=== PATIENT | female | born 1980 | race Caucasian/White ===

== ENCOUNTER 2016-07-05 10:08 | Emergency (ER) | payer OTHER ==
--- NOTE | 2016-07-05 12:15 | DIAGNOSTIC IMAGING REPORT ---
PROCEDURE: CT LUMBAR SPINE W/O CONTRAST INDICATION: LOWER BACK PAIN. HX OF "FRACTURE" TECHNIQUE: Thin slice axial CT images were obtained through the lumbar spine. Coronal and sagittal reformations were created. COMPARISON: None. FINDINGS: Five lumbar type vertebral bodies are present. There is a unilateral left-sided pars defect of L5 which is well corticated and demonstrates tiny subcortical cystic changes. No significant degenerative hypertrophy. The vertebral bodies are otherwise intact. No acute or chronic fractures. The patient is slightly tilted to the right, but the AP and transverse vertebral body alignment remains normal. Normal disc spacing. Paraspinal soft tissues are within normal limits. No suspicious density within the spinal canal. IMPRESSION: 1. No acute fractures. 2. Chronic-appearing unilateral left L5 pars defect. 3. Findings called to the emergency room.
--- NOTE | 2016-07-05 12:24 | ED CLINICAL REPORT ---
Clinical Report - Physicians/Mid Levels [facility] [address] [place] [address] 07/05/2016 10:09 Patient: LUCIE ROJAS Time Seen: 1010. Arrived- By private vehicle. Historian- patient. HISTORY OF PRESENT ILLNESS Chief Complaint: BACK PAIN. Onset was yesterday and it is still present. It was abrupt in onset and has been constant but is not gone now. It is described as being severe and in the area of the left lower lumbar spine and right lower lumbar spine. The quality is noted to be sharp and aching. No radiation. No bladder dysfunction, bowel dysfunction, sensory loss or motor loss. Additional history - Reports no history of IV drug use, fever, or saddle anesthesia. Patient denies an injury but injury to the head or neck. No other injury. Similar symptoms previously: Many times. Recent medical care: Not recently seen/assessed. REVIEW OF SYSTEMS No fever or skin rash. All systems otherwise negative, except as recorded above. PAST HISTORY See nurses notes. Medications: Nauzene Oral 1 tab at 0800. None. 400mg advil at 0800. Allergies: No Known Drug Allergy. SOCIAL HISTORY Smoker- current status unknown. Occasional alcohol use. History of occasional drug use: marijuana. No recent travel. Is a local resident. ADDITIONAL NOTES The nursing notes have been reviewed. PHYSICAL EXAM Vital Signs: 07/05/2016 10:15 BP: 129/93. HR: 71. RR: 18. O2 saturation: 100%. Temp: 98.4 F. Pain level now: 8/10. Oxygen saturation normal. Appearance: Alert. No acute distress. HEENT: Normal external inspection. Eyes: Pupils equal, round and reactive to light. ENT: Ears normal. Pharynx normal. Neck: Normal inspection. Neck nontender. Painless ROM. CVS: Heart sounds normal. Respiratory: No respiratory distress. Breath sounds normal. Abdomen: No visible injury. Soft and nontender. Bowel sounds normal. Back: Normal inspection. No vertebral point tenderness. (mild bilateral paraspinal muscle tenderness. No overlying skin changes. No crepitus. No step-off. No masses.). Skin: Skin warm and dry. Normal skin color. No rash. Normal skin turgor. Extremities: Extremities exhibit normal ROM. Extremities nontender. Neuro: Oriented X 3. Mood/affect normal. No motor deficit. No sensory deficit. LABS, X-RAYS, AND EKG Laboratory Tests: UA-Culture if indicated: (EMERY: 07/05/2016 10:43) ( [facility] 07/05/2016 10:58) Final results Test Result Flag Units (Reference) URINE COLOR YELLOW URINE APPEARANCE CLEAR URINE GLUCOSE NEGATIVE (NEGATIVE) URINE BILIRUBIN NEGATIVE (NEGATIVE) URINE KETONE NEGATIVE (NEGATIVE) URINE SPECIFIC GRAVITY <= 1.005 L (1.010-1.030) URINE PH 7.0 (5.0-8.0) URINE PROTEIN NEGATIVE (NEGATIVE) URINE UROBILINOGEN 0.2 EU/dL (0.2-1.0) URINE NITRITE NEGATIVE (NEGATIVE) URINE BLOOD 3+ (NEGATIVE) URINE LEUK ESTERASE NEGATIVE (NEGATIVE) URINE RBC 3-5 rbc/hpf (0-1) URINE WBC NONE SEEN wbc/hpf (0-1) URINE EPITHELIAL CELLS 0-1 EPI/hpf (0-5) URINE BACTERIA TRACE (<1+) (NONE SEEN) URINE COMMENT CULT NOT INDICATED URINE CULTURES ARE SET-UP BASED ON THE FOLLOWING CRITERIA:POSITIVE NITRITEPOSITIVE LEUKOCYTE ESTERASEGREATER THAN 10 WHITE BLOOD CELLSMODERATE (2+) OR GREATER BACTERIA Urine: (EMERY: 07/05/2016 10:43) ( [facility] 07/05/2016 10:49) Final results Test Result Flag Units (Reference) URINE NEGATIVE . PROGRESS AND PROCEDURES Course of Care: The patient is a pleasant 35yo female presenting for evaluation of lower back apin . On examination, the patient does not have any signs of meningitis or cauda equina/conus medullaris. No evidence of paraspinal infection or epidural abscess. No red flags. Patient does not require imaging at this time however due to reported hx of fracture. Discussed CT vs plain films. No evidence of cord compromise at this time. Patient appears nontoxic and is in no acute distress. At this point, feel the risks of imaging does outweigh the benefits. Pain medication offered here in the emergency department. Patient is agreeable to the treatment plan. UA ordered for possible pyelonephritis. Pain medication provided here in the emergency department. Patient continues to be in no acute distress and resting comfortably. Work up only remarkable for blood on UA. Patient reports being on her period. Do not feel further workup in the emergency department or admission to the hospital require at this point in time. I discussed with the patient workup, diagnosis, home care, follow-up, and return precautions. All questions have been answered. The patient expressed understanding of these instructions and was agreeable to them. Disposition: Discharged. Condition: good. CLINICAL IMPRESSION 07/05/2016 10:15 BP: 129/93. HR: 71. RR: 18. O2 saturation: 100%. Temp: 98.4 F. Pain level now: 12/10. Microscopic hematuria Hypertensive. Oxygen saturation normal. Essential hypertension. Acute nontraumatic lumbar back pain. (acute left > right). INSTRUCTIONS Warnings: GENERAL WARNINGS: Return or contact your physician immediately if your condition worsens or changes unexpectedly, if not improving as expected, or if other problems arise. SPECIFICALLY, return if you develop weakness, numbness, tingling, pain or incontinence. fever. Your Current Medications: CONTINUE TAKING THE FOLLOWING MEDICATIONS: 400mg advil at 0800*. Nauzene Oral : 1 tab at 0800. None*. Prescription Medications: Motrin 600 mg tablets: take 1 tablet orally every 6 hours as needed for pain, stiffness or swelling. Dispense thirty (30). No refill. Substitution is permissible. (Take with food) Percocet 5 mg/325 mg: take 1 tablet orally every 6 hours as needed for pain. Dispense ten (10). No refill. Substitution is permissible. Follow-up: Return to the emergency department as needed. Follow up with your doctor in three days. Reason for referral: recheck today's concerns. Summary of care provided to patient via paper. Screening today revealed the patient's blood pressure to be in the normal range. The patient should follow up with a primary care provider for blood pressure management. Understanding of the discharge instructions verbalized by patient. (Electronically signed by Vikram Mckinney Dr. 07/07/2016 1:40)
--- NOTE | 2016-07-05 12:24 | ED ORDER SUMMARY ---
..... Patient: LUCIE ROJAS OrderSheet [facility] VisitID: [id number] [address] [place] [address] 35y, F Registration Date/Time: 07/05/2016 ORDER SHEET Weight: 108.8 kg (stated) Allergies: No Known Drug Allergy GENERAL ORDERS: CT Lumbar Spine wo Cont Urgent (10:41 07/05/2016 Elvis Quinn) (Ack 10:43 oerner) (10:48 oerner) UA-Culture if indicated Urgent (10:42 07/05/2016 Elvis Quinn) (Ack 10:43 Megan) (11:02 DDean R.N.) Urine Urgent (10:42 07/05/2016 Elvis Quinn) (Ack 10:43 Yoelrjamin) (10:46 DDean R.N.) (Cancelled: Other10:46 DDean R.N.) POC - Urine hCG (10:46 07/05/2016 DDean R.N. per protocol) (10:47 DDean R.N.) MEDICATION ORDERS: Toradol IM 60 mg (NOW) (10:42 07/05/2016 Elvis Quinn) (Ack 10:46 DDean R.N.) (11:01 DDean R.N.) Zofran ODT PO 4 mg (NOW) (10:42 07/05/2016 Elvis Quinn) (Ack 10:46 DDean R.N.) (11:02 DDean R.N.) IV FLUIDS: ORDER SHEET NOTES: [Electronically signed by Andria Box R.N. (14:51 07/05/2016)] [Electronically signed by Vikram Mckinney Dr. (01:40 07/07/2016)] [Electronically locked/signed by Andria Box R.N. (14:51 07/05/2016)]
--- NOTE | 2016-07-05 12:24 | ED ORDER SUMMARY ---
..... Patient: LUCIE ROJAS OrderSheet [facility] VisitID: [id number] [address] [place] [address] 35y, F Registration Date/Time: 07/05/2016 ORDER SHEET Weight: 108.8 kg (stated) Allergies: No Known Drug Allergy GENERAL ORDERS: CT Lumbar Spine wo Cont Urgent (10:41 07/05/2016 Elvis Quinn) (Ack 10:43 oerner) (10:48 oerner) UA-Culture if indicated Urgent (10:42 07/05/2016 Elvis Quinn) (Ack 10:43 Megan) (11:02 DDean R.N.) Urine Urgent (10:42 07/05/2016 Elvis Quinn) (Ack 10:43 Yoelrjamin) (10:46 DDean R.N.) (Cancelled: Other10:46 DDean R.N.) POC - Urine hCG (10:46 07/05/2016 DDean R.N. per protocol) (10:47 DDean R.N.) MEDICATION ORDERS: Toradol IM 60 mg (NOW) (10:42 07/05/2016 Elvis Quinn) (Ack 10:46 DDean R.N.) (11:01 DDean R.N.) Zofran ODT PO 4 mg (NOW) (10:42 07/05/2016 Elvis Quinn) (Ack 10:46 DDean R.N.) (11:02 DDean R.N.) IV FLUIDS: ORDER SHEET NOTES: [Electronically signed by Andria Box R.N. (14:51 07/05/2016)] [Electronically signed by Vikram Mckinney Dr. (01:40 07/07/2016)] [Electronically locked/signed by Andria Box R.N. (14:51 07/05/2016)]
--- NOTE | 2016-07-05 12:24 | ED NURSING NOTES ---
Clinical Report - Nurses [facility] [address] [place] [address] 07/05/2016 10:09 Patient: LUCIE ROJAS TRIAGE Triage time 1015. Acuity: LEVEL 4. Chief Complaint: BACK PAIN and (pt c/o LBP since yesterday afternoon. Has chronic LBP, does't know what set off this episode. States pain has been so bad when she moves that she becomes nauseated and "breaks out in a sweat"). --10:24 Andria Box R.N. 10:15 07/05/16. BP: 129/93. HR: 71. RR: 18. O2 saturation: 100%. Temp: 98.4 F. Pain level now: 12/10. --10:24 Andria Box R.N. Weight: 108.8 kg stated. Height/Length: 67 inches Per Patient. BMI: 37.6. --10:20 Andria Box R.N. Medications 400mg advil at 0800. --10:24 Andria Box R.N. Nauzene Oral 1 tab at 0800. None. --10:24 Andria Box R.N. Allergies No Known Drug Allergy. --10:23 Andria Box R.N. History Arrived by private vehicle. Historian: patient. Unaccompanied. This started yesterday. PAST MEDICAL HX: Last normal menstrual period- now. SOCIAL HX: Heavy tobacco smoker (cigarette)- 1 pack per day. Occasional alcohol use. History of drug use: marijuana. --10:24 Andria Box R.N. PROBLEMS: Chronic low back pain with fx . --10:22 Andria Box R.N. ADDITIONAL SURGERIES: Left leg set as a child . --10:23 Andria Box R.N. Interventions ID band on patient. To treatment room. --10:24 Isauro, Andria, R.N. PHYSICAL ASSESSMENT 10:15. Ambulatory to room. Patient gowned. GENERAL / NEURO / PSYCH: Alert. Oriented X 4. RESPIRATORY: Respirations not labored. CVS: Capillary refill less than 2 seconds. GI / : Abdomen soft. BACK: Limited ROM of the back. Soft tissue tenderness. --10:25 Andria Box R.N. NURSING PROGRESS NOTES 10:15. Patient gowned. Head of bed elevated. Reassurance given. Patient identifiers checked. Call light placed in reach. Side rails up. Bed placed in lowest position. Patient ready for evaluation- chart flagged. --10:24 Andria Box R.N. 10:34 07/05/16. Patient ID band checked for patient name and birthdate: patient confirmed. Clean catch urine collected with return of yellow-colored clear urine; sample sent to lab. Specimen labeled in the presence of the patient (POC preg = Neg, ERMD notified). --10:34 Andria Box R.N. 10:35 07/05/16. Cold pack applied. --10:35 Andria Box R.N. 10:45. Patient transported to radiology by stretcher with tech. --10:51 Andria Box R.N. 10:56. Patient returned from radiology by stretcher with tech. --10:59 Andria Box R.N. 10:57 07/05/2016 Zofran ODT (Ondansetron) PO Oral Disintegrating Tablets 4 mg given. Allergies verified and confirmed 5 rights. --11:02 Andria Box R.N. 11:01 07/05/2016 Toradol (Ketorolac Tromethamine) IM 60 mg given. Given in the right ventral gluteus. --11:01 Andria Box R.N. 11:00 07/05/16. BP: 116/80. HR: 74. RR: 16. O2 saturation: 100%. Temp: deferred. Pain level now: 08/10. --14:49 Andria Box R.N. 12:20 Pt sitting fully dressed on bed, states she is pain free. waiting for discharge. --14:51 Andria Box R.N. DISPOSITION / DISCHARGE 1230. Condition at departure: stable. No learning barriers present. Reviewed medication(s) (motrin, percocoet). Patient verbalized understanding. Written instructions provided in Kazakh. The patient was discharged home and unaccompanied at time of discharge. She left the Emergency Department ambulatory and via private vehicle. Patient driving. --14:48 Andria Box R.N. 14:30 07/05/16. BP: 118/80. HR: 68. RR: 18. O2 saturation: 100%. Temp: deferred. Pain level now: 0/10. --14:48 Andria Box R.N. correction to prior entry - time 1230 NOT 1430. --14:50 Andria Box R.N. Locked/Released at 07/05/2016 14:51 by Andria Box R.N.
--- NOTE | 2016-07-07 01:40 | ED MAR SUMMARY ---
..... Medication Administration Record [facility] [address] [address] Patient: LUCIE ROJAS Visit ID: [id number] 35y, F Weight: 108.8 kg Height/Length: 67 in BMI: 37.6 ALLERGIES: No Known Drug Allergy Given 10:57 07/05/2016 Andria Box RPaulinoN. Medication Administered: ZOFRAN ODT [PO] (ONDANSETRON), Dose: 4 mg Oral Disintegrating Tablets PO. Medication Ordered: Zofran ODT PO 4 mg (NOW). Given 11:01 07/05/2016 Andria Box, RPaulinoN. Medication Administered: TORADOL [IM] (KETOROLAC TROMETHAMINE), Dose: 60 mg IM. Medication Ordered: Toradol IM 60 mg (NOW).
--- NOTE | 2016-07-07 01:40 | ED MED RECONCILIATION SUMMARY ---
Patient: LUCIE ROJAS Medication Reconciliation Report [facility] VisitID: [id number] [address] [place] [address] 35y, F Registration Date/Time: 07/05/2016 Weight: 108.8 kg Height/Length: 67 in. BMI: 37.6 ALLERGIES: No Known Drug Allergy The patient's Home Medications are listed below: CONTINUE TAKING THE FOLLOWING MEDICATIONS: 400mg advil at 0800 Nauzene Oral 1 tab at 0800 The source(s) of the original Home Medication information: Not obtained. The following Medications were given to the patient in the Emergency Department: Toradol [IM] IM 60 mg, administered: 07/05/2016 11:01:00 AM Zofran ODT [PO] PO 4 mg, administered: 07/05/2016 10:57:00 AM The following Medications were prescribed to the patient: Motrin 600 mg tablets: take 1 tablet orally every 6 hours as needed for pain, stiffness or swelling. Dispense thirty (30). No refill. Substitution is permissible.(Take with food) -- Vikram Mckinney Dr. Percocet 5 mg/325 mg: take 1 tablet orally every 6 hours as needed for pain. Dispense ten (10). No refill. Substitution is permissible. -- Vikram Mckinney Dr.
--- NOTE | 2016-07-07 01:40 | ED MAR SUMMARY ---
..... Medication Administration Record [facility] [address] [place] [address] Patient: LUCIE ROJAS Visit ID: [id number] 35y, F Weight: 108.8 kg Height/Length: 67 in BMI: 37.6 ALLERGIES: No Known Drug Allergy Given 10:57 07/05/2016 Andria Box RPaulinoN. Medication Administered: ZOFRAN ODT [PO] (ONDANSETRON), Dose: 4 mg Oral Disintegrating Tablets PO. Medication Ordered: Zofran ODT PO 4 mg (NOW). Given 11:01 07/05/2016 Andria Box, RPaulinoN. Medication Administered: TORADOL [IM] (KETOROLAC TROMETHAMINE), Dose: 60 mg IM. Medication Ordered: Toradol IM 60 mg (NOW).
--- NOTE | 2016-07-07 01:40 | ED MED RECONCILIATION SUMMARY ---
Patient: LUCIE ROJAS Medication Reconciliation Report [facility] VisitID: [id number] [address] [place] [address] 35y, F Registration Date/Time: 07/05/2016 Weight: 108.8 kg Height/Length: 67 in. BMI: 37.6 ALLERGIES: No Known Drug Allergy The patient's Home Medications are listed below: CONTINUE TAKING THE FOLLOWING MEDICATIONS: 400mg advil at 0800 Nauzene Oral 1 tab at 0800 The source(s) of the original Home Medication information: Not obtained. The following Medications were given to the patient in the Emergency Department: Toradol [IM] IM 60 mg, administered: 07/05/2016 11:01:00 AM Zofran ODT [PO] PO 4 mg, administered: 07/05/2016 10:57:00 AM The following Medications were prescribed to the patient: Motrin 600 mg tablets: take 1 tablet orally every 6 hours as needed for pain, stiffness or swelling. Dispense thirty (30). No refill. Substitution is permissible.(Take with food) -- Vikram Mckinney Dr. Percocet 5 mg/325 mg: take 1 tablet orally every 6 hours as needed for pain. Dispense ten (10). No refill. Substitution is permissible. -- Vikram Mckinney Dr.
--- NOTE | 2016-07-07 01:40 | ED DISCHARGE INSTRUCTIONS ---
Patient: LUCIE ROJAS General Instructions [facility] VisitID: [id number] [address] [place] [address] 35y, F Registration Date/Time: 07/05/2016 07/05/2016 10:15 BP: 129/93. HR: 71. RR: 18. O2 saturation: 100%. Temp: 98.4 F. Pain level now: 12/10. Microscopic hematuria Hypertensive. Oxygen saturation normal. Essential hypertension. Acute nontraumatic lumbar back pain. (acute left > right). INSTRUCTIONS Warnings: GENERAL WARNINGS: Return or contact your physician immediately if your condition worsens or changes unexpectedly, if not improving as expected, or if other problems arise. SPECIFICALLY, return if you develop weakness, numbness, tingling, pain or incontinence. fever. Your Current Medications: CONTINUE TAKING THE FOLLOWING MEDICATIONS: 400mg advil at 0800*. Nauzene Oral : 1 tab at 0800. None*. Prescription Medications: Motrin 600 mg tablets: take 1 tablet orally every 6 hours as needed for pain, stiffness or swelling. Dispense thirty (30). No refill. Substitution is permissible. (Take with food) Percocet 5 mg/325 mg: take 1 tablet orally every 6 hours as needed for pain. Dispense ten (10). No refill. Substitution is permissible. Follow-up: Return to the emergency department as needed. Follow up with your doctor in three days. Reason for referral: recheck today's concerns. Summary of care provided to patient via paper. Screening today revealed the patient's blood pressure to be in the normal range. The patient should follow up with a primary care provider for blood pressure management. Understanding of the discharge instructions verbalized by patient. ADDITIONAL INFORMATION Back Pain [Acute Or Chronic] Back pain is usually caused by an injury to the muscles or ligaments of the spine. Sometimes the disks that separate each bone in the spine may bulge and cause pain by pressing on a nearby nerve. Back pain may also appear after a sudden twisting/bending force (such as in a car accident), after a simple awkward movement, or lifting something heavy with poor body positioning. In either case, muscle spasm is often present and adds to the pain. Acute back pain usually gets better in one to two weeks. Back pain related to disk disease, arthritis in the spinal joints or spinal stenosis (narrowing of the spinal canal) can become chronic and last for months or years. Unless you had a physical injury (for example, a car accident or fall) X-rays are usually not ordered for the initial evaluation of back pain. If pain continues and does not respond to medical treatment, x-rays and other tests may be performed at a later time. Home Care: You may need to stay in bed the first few days. But, as soon as possible, begin sitting or walking to avoid problems with prolonged bed rest (muscle weakness, worsening back stiffness and pain, blood clots in the legs). When in bed, try to find a position of comfort. A firm mattress is best. Try lying flat on your back with pillows under your knees. You can also try lying on your side with your knees bent up towards your chest and a pillow between your knees. Avoid prolonged sitting. This puts more stress on the lower back than standing or walking. During the first two days after injury, apply an ICE PACK to the painful area for 20 minutes every 2-4 hours. This will reduce swelling and pain. HEAT (hot shower, hot bath or heating pad) works well for muscle spasm. You can start with ice, then switch to heat after two days. Some patients feel best alternating ice and heat treatments. Use the one method that feels the best to you. You may use acetaminophen (Tylenol) or ibuprofen (Motrin, Advil) to control pain, unless another pain medicine was prescribed. [NOTE: If you have chronic liver or kidney disease or ever had a stomach ulcer or GI bleeding, talk with your doctor before using these medicines.] Be aware of safe lifting methods and do not lift anything over 15 pounds until all the pain is gone. Follow Up with your doctor or this facility if your symptoms do not start to improve after one week. Physical therapy may be needed. [NOTE: If X-rays were taken, they will be reviewed by a radiologist. You will be notified of any new findings that may affect your care.] Get Prompt Medical Attention if any of the following occur: Pain becomes worse or spreads to your legs Weakness or numbness in one or both legs Loss of bowel or bladder control Numbness in the groin or genital area High Blood Pressure -- To Be Confirmed [No Tx] Your blood pressure was higher today than normal. Sometimes anxiety or pain can cause a temporary rise in blood pressure that later returns to normal. If your blood pressure is high on one measurement, this does not mean that you have hypertension (a chronic illness). However, you must have your blood pressure measured again within the next few days to find out if its still high. A normal blood pressure is 120/80 or less. The first (top) number is the "systolic" pressure. The second (bottom) number is the "diastolic" pressure. Hypertension exists when either the top number is 140 or higher, OR the bottom number is 90 or higher on repeated measurements. Blood pressure in the range of 120-140 (systolic) or 80-89 (diastolic) is considered "pre-hypertension". This means your are at risk for getting hypertension. You should have regular blood pressure checks to be sure your blood pressure is not rising. Home Care: Measure your blood pressure on 3 different days and write down the results. This can be done at your doctor's office or this facility. Some pharmacies and grocery stores offer automated blood pressure machines for your use. Follow Up: If your blood pressure is "high" (over 120/80) on 2 out of 3 days, you will need to follow up with your doctor for further evaluation and treatment. DO NOT PUT THIS OFF! Untreated high blood pressure increases the risk for heart attack, also known as acute myocardial infarction, or AMI, and stroke. It is a treatable condition. Get Prompt Medical Attention if any of the following occur: Chest pain or shortness of breath Severe headache Throbbing or rushing sound in the ears Nosebleed Sudden severe abdominal pain Extreme drowsiness, confusion or fainting Dizziness or vertigo (dizziness with spinning sensation) Weakness of an arm or leg or one side of the face Difficulty with speech or vision Blood In The Urine Blood in the urine ("hematuria") has many possible causes. If it occurs after an injury (such as a car accident or fall), it is most often a sign of bruising to the kidney or bladder. Common medical causes of blood in the urine include urinary tract infection, kidney stone, inflammation, tumors, or certain other diseases of the kidney or bladder. Menstruation can cause blood to appear in the urine sample, although it is not coming from the urinary tract. If only a trace amount of blood is present, it will show up on the urine test, even though the urine may be yellow and not pink or red. This may occur with any of the above conditions, as well as heavy exercise or high fever. In this case, your doctor may want to repeat the urine test on another day. This will show if the blood is still present. If so, then other tests can be done to find out the cause. Home Care: If your urine does not appear bloody (pink, brown or red) then you do not need to restrict your activity in any way. If you can see blood in your urine, rest and avoid heavy exertion until your next exam. Do not use aspirin or anti-inflammatory medicine like ibuprofen (Motrin, Advil) or naproxen (Naprosyn, Aleve). These thin the blood and may increase bleeding. Follow Up with your doctor or as advised by our staff. If you were injured and had blood in your urine, you should have a repeat urine test in 1-2 days. Contact your doctor or return to this facility for this test. [NOTE: A radiologist will review any X-rays that were taken. We will notify you of any new findings that may affect your care.] Get Prompt Medical Attention if any of the following occur: Bright red blood or blood clots in the urine (if a new symptom) Weakness, dizziness or fainting New groin, abdominal or back pain Fever of 100.4F (38C) or higher, or as directed by your healthcare provider Repeated vomiting Bleeding from nose, gums or easy bruising Ibuprofen Oral tablet What is this medicine? IBUPROFEN (eye BYOO proe fen) is a non-steroidal anti-inflammatory drug (NSAID). It is used for dental pain, fever, headaches or migraines, osteoarthritis, rheumatoid arthritis, or painful monthly periods. It can also relieve minor aches and pains caused by a cold, flu, or sore throat. How should I use this medicine? Take this medicine by mouth with a glass of water. Follow the directions on the prescription label. Take this medicine with food if your stomach gets upset. Try to not lie down for at least 10 minutes after you take the medicine. Take your medicine at regular intervals. Do not take your medicine more often than directed. A special MedGuide will be given to you by the pharmacist with each prescription and refill. Be sure to read this information carefully each time. Talk to your front desk representative regarding the use of this medicine in children. Special care may be needed. What side effects may I notice from receiving this medicine? Side effects that you should report to your doctor or health customer care manager as soon as possible: allergic reactions like skin rash, itching or hives, swelling of the face, lips, or tongue black or bloody stools, blood in the urine or in vomit breathing problems changes in vision chest pain general ill feeling or flu-like symptoms nausea or vomiting redness, blistering, peeling or loosening of the skin, including inside the mouth slurred speech or weakness on one side of the body stomach pain unexplained weight gain or swelling unusually weak or tired yellowing of eyes or skin Side effects that usually do not require medical attention (report to your doctor or health customer care manager if they continue or are bothersome): constipation or diarrhea dizziness gas or heartburn stomach upset What may interact with this medicine? Do not take this medicine with any of the following medications: cidofovir ketorolac methotrexate pemetrexed This medicine may also interact with the following medications: alcohol aspirin diuretics lithium other drugs for inflammation like prednisone warfarin What if I miss a dose? If you miss a dose, take it as soon as you can. If it is almost time for your next dose, take only that dose. Do not take double or extra doses. Where should I keep my medicine? Keep out of the reach of children. Store at room temperature between 15 and 30 degrees C (59 and 86 degrees F). Keep container tightly closed. Throw away any unused medicine after the expiration date. What should I tell my health care provider before I take this medicine? They need to know if you have any of these conditions: asthma cigarette smoker drink more than 3 alcohol containing drinks a day heart disease or circulation problems such as heart failure or leg edema (fluid retention) high blood pressure kidney disease liver disease stomach bleeding or ulcers an unusual or allergic reaction to ibuprofen, aspirin, other NSAIDS, other medicines, foods, dyes, or preservatives or trying to get breast-feeding What should I watch for while using this medicine? Tell your doctor or healthcare professional if your symptoms do not start to get better or if they get worse. This medicine does not prevent heart attack or stroke. In fact, this medicine may increase the chance of a heart attack or stroke. The chance may increase with longer use of this medicine and in people who have heart disease. If you take aspirin to prevent heart attack or stroke, talk with your doctor or health customer care manager. Do not take other medicines that contain aspirin, ibuprofen, or naproxen with this medicine. Side effects such as stomach upset, nausea, or ulcers may be more likely to occur. Many medicines available without a prescription should not be taken with this medicine. This medicine can cause ulcers and bleeding in the stomach and intestines at any time during treatment. Ulcers and bleeding can happen without warning symptoms and can cause . To reduce your risk, do not smoke cigarettes or drink alcohol while you are taking this medicine. You may get drowsy or dizzy. Do not drive, use machinery, or do anything that needs mental alertness until you know how this medicine affects you. Do not stand or sit up quickly, especially if you are an older patient. This reduces the risk of dizzy or fainting spells. This medicine can cause you to bleed more easily. Try to avoid damage to your teeth and gums when you brush or floss your teeth. Oxycodone Hydrochloride, Acetaminophen Oral tablet What is this medicine? ACETAMINOPHEN; OXYCODONE (a set a NAVYA lora fen; ox i KOE done) is a pain reliever. It is used to treat mild to moderate pain. How should I use this medicine? Take this medicine by mouth with a full glass of water. Follow the directions on the prescription label. Take your medicine at regular intervals. Do not take your medicine more often than directed. Talk to your front desk representative regarding the use of this medicine in children. Special care may be needed. Patients over 65 years old may have a stronger reaction and need a smaller dose. What side effects may I notice from receiving this medicine? Side effects that you should report to your doctor or health customer care manager as soon as possible: allergic reactions like skin rash, itching or hives, swelling of the face, lips, or tongue breathing difficulties, wheezing confusion light headedness or fainting spells severe stomach pain yellowing of the skin or the whites of the eyes Side effects that usually do not require medical attention (report to your doctor or health customer care manager if they continue or are bothersome): dizziness drowsiness nausea vomiting What may interact with this medicine? alcohol antihistamines barbiturates like amobarbital, butalbital, butabarbital, methohexital, pentobarbital, phenobarbital, thiopental, and secobarbital benztropine drugs for bladder problems like solifenacin, trospium, oxybutynin, tolterodine, hyoscyamine, and methscopolamine drugs for breathing problems like ipratropium and tiotropium drugs for certain stomach or intestine problems like propantheline, homatropine methylbromide, glycopyrrolate, atropine, belladonna, and dicyclomine general anesthetics like etomidate, ketamine, nitrous oxide, propofol, desflurane, enflurane, halothane, isoflurane, and sevoflurane medicines for depression, anxiety, or psychotic disturbances medicines for sleep muscle relaxants naltrexone narcotic medicines (opiates) for pain phenothiazines like perphenazine, thioridazine, chlorpromazine, mesoridazine, fluphenazine, prochlorperazine, promazine, and trifluoperazine scopolamine tramadol trihexyphenidyl What if I miss a dose? If you miss a dose, take it as soon as you can. If it is almost time for your next dose, take only that dose. Do not take double or extra doses. Where should I keep my medicine? Keep out of the reach of children. This medicine can be abused. Keep your medicine in a safe place to protect it from theft. Do not share this medicine with anyone. Selling or giving away this medicine is dangerous and against the law. Store at room temperature between 20 and 25 degrees C (68 and 77 degrees F). Keep container tightly closed. Protect from light. This medicine may cause accidental overdose and if it is taken by other adults, children, or pets. Flush any unused medicine down the toilet to reduce the chance of harm. Do not use the medicine after the expiration date. What should I tell my health care provider before I take this medicine? They need to know if you have any of these conditions: brain tumor Crohn's disease, inflammatory bowel disease, or ulcerative colitis drink more than 3 alcohol containing drinks per day drug abuse or addiction head injury heart or circulation problems kidney disease or problems going to the bathroom liver disease lung disease, asthma, or breathing problems an unusual or allergic reaction to acetaminophen, oxycodone, other opioid analgesics, other medicines, foods, dyes, or preservatives or trying to get breast-feeding What should I watch for while using this medicine? Tell your doctor or health customer care manager if your pain does not go away, if it gets worse, or if you have new or a different type of pain. You may develop tolerance to the medicine. Tolerance means that you will need a higher dose of the medication for pain relief. Tolerance is normal and is expected if you take this medicine for a long time. Do not suddenly stop taking your medicine because you may develop a severe reaction. Your body becomes used to the medicine. This does NOT mean you are addicted. Addiction is a behavior related to getting and using a drug for a non-medical reason. If you have pain, you have a medical reason to take pain medicine. Your doctor will tell you how much medicine to take. If your doctor wants you to stop the medicine, the dose will be slowly lowered over time to avoid any side effects. You may get drowsy or dizzy. Do not drive, use machinery, or do anything that needs mental alertness until you know how this medicine affects you. Do not stand or sit up quickly, especially if you are an older patient. This reduces the risk of dizzy or fainting spells. Alcohol may interfere with the effect of this medicine. Avoid alcoholic drinks. There are different types of narcotic medicines (opiates) for pain. If you take more than one type at the same time, you may have more side effects. Give your health care provider a list of all medicines you use. Your doctor will tell you how much medicine to take. Do not take more medicine than directed. Call emergency for help if you have problems breathing. The medicine will cause constipation. Try to have a bowel movement at least every 2 to 3 days. If you do not have a bowel movement for 3 days, call your doctor or health customer care manager. Do not take Tylenol (acetaminophen) or medicines that have acetaminophen with this medicine. Too much acetaminophen can be very dangerous. Many nonprescription medicines contain acetaminophen. Always read the labels carefully to avoid taking more acetaminophen. You have been given the following additional information: Back Pain (Acute Or Chronic) Hypertension, To Be Confirmed Hematuria Ibuprofen Oral tablet Oxycodone Hydrochloride, Acetaminophen Oral tablet (Electronically signed by Vikram Mckinney Dr. 07/07/2016 1:40)
== END 2016-07-05 12:30 | disposition home or self-care (01) ==
LOC: ED SRH 10:08
DX: M54.5 Low back pain (principal); R31.29 Other microscopic hematuria; I10 Essential (primary) hypertension
CPT/HCPCS: 90004; 93070